=== PATIENT | female | born 2000 | race Caucasian/White ===

== ENCOUNTER 2021-06-01 16:24 | Emergency (ER) | payer SELFPAY ==
[~2021-06-01] VITALS: Ht 165.1 cm; Wt 64.9 kg
--- NOTE | 2021-06-01 16:32 | NUR ---
BIBS C/O LEFT KNEE PAIN X3 WEEKS FROM DANCING. PT HEARD A POP IN THE KNEE. A&OX4. AMBULATORY. BREATHING IS EVEN AND UNLABORED. PULSES ARE 2+ BILATERALLY IN LOWER EXTREMITIES.
--- NOTE | 2021-06-01 16:38 | NUR ---
ICE PACK PLACED ON KNEE
[2021-06-01] MEDS ORDERED: IBUP-1955 PO (16:46)
--- NOTE | 2021-06-01 16:55 | NUR ---
PT PLACED IN LEFT KNEE IMMOBILIZER AND GIVEN CRUTCHES
[2021-06-01 17:22] VITALS: BP 133/84
== END 2021-06-01 17:20 | disposition home or self-care (01) ==
LOC: ER 16:30
DX: M25.562 Pain in left knee (principal)